=== PATIENT | female | born 1975 | race Caucasian/White ===

== ENCOUNTER → 2022-10-27 13:17 | Outpatient (BNVA) | payer MEDICAID, SELFPAY | PROVIDERS: PCP Family Medicine; Visit Provider Physician Assistant Surgical | DX: Z71.3 Dietary counseling and surveillance (principal) | CPT/HCPCS: 99211 ==

== ENCOUNTER → 2022-10-29 14:17 | Outpatient (BNVA) | payer MEDICAID, SELFPAY | PROVIDERS: PCP Family Medicine; Visit Provider Physician Assistant Surgical | DX: E66.01 Morbid (severe) obesity due to excess calories (principal); Z68.41 Body mass index [BMI] 40.0-44.9, adult | CPT/HCPCS: 99202 ==

== ENCOUNTER 2022-11-03 10:20 | Outpatient (REF) | payer MEDICAID, SELFPAY ==
--- NOTE | ~2022-11-03 | XR_ITS ---
EXAMINATION: XR CHEST CLINICAL INFORMATION: Obesity COMPARISON: None TECHNIQUE: 2 views of the chest were obtained. FINDINGS: The cardiomediastinal silhouette is within normal limits. The lungs are well expanded. There is no focal consolidation, edema, or effusion. No pneumothorax. No acute osseous abnormality. XR/XR chest 2V IMPRESSION: No acute cardiopulmonary process.
--- NOTE | 2022-11-03 10:28 | ECG_ITS ---
Test Reason : e66.01 Blood Pressure : / mmHG Vent. Rate : 063 BPM Atrial Rate : 063 BPM P-R Int : 114 ms QRS Dur : 100 ms QT Int : 408 ms P-R-T Axes : 065 -09 046 degrees QTc Int : 417 ms Normal sinus rhythm Normal ECG No previous ECGs available Referred By: Naga Mak Electronically Signed By:MARIA GUADALUPE PARKS MD
[2022-11-03 10:40] LABS: MANUAL DIFF FLAG NO
[2022-11-03 12:04] LABS: Basophils Percent Auto 0.6 % (0-2); Eosinophils Absolute Auto 0.5 X10*3/uL (0.0-0.4); Eosinophils Percent Auto 6.9 % (0-4); Hematocrit 41.7 % (37.0-47.0); Hemoglobin 13.8 g/dl (12.0-16.0); Imm Gran Abs Auto 0.02 X10*3/uL (0.00-0.03); Imm Gran Pct Auto 0.3 % (0.0-0.4); Lymphocytes Absolute Auto 1.9 X10*3/uL (1.2-4.9); Lymphocytes Percent Auto 28.5 % (20-40); Mean Corpuscular HGB Conc 33.1 g/dl (31.0-35.0); Mean Corpuscular Hemoglobin 30.5 pg (27.0-33.0); Mean Corpuscular Volume 92.1 fL (80.0-98.0); Mean Platelet Volume 11.2 fL (9.4-12.3); Monocytes Absolute Auto 0.4 X10*3/uL (0.1-1.2); Monocytes Percent Auto 6.4 % (2-11); Neutrophils Absolute Auto 3.9 x10*3/uL (2.0-8.3); Neutrophils Percent Auto 57.3 % (45-73); Platelet Count 251 X10*3/uL (160-400); Red Blood Count 4.53 X10*6/uL (4.20-5.50); Red Cell Distribution Width 12.2 % (11.0-16.0); White Blood Count 6.7 X10*3/uL (4.8-10.8)
[2022-11-03 12:40] LABS: Estimated Average Glucose 105 mg/dL; Hemoglobin A1c % 5.3 %
[2022-11-03 13:21] LABS: Alanine Aminotransferase 15 U/L (0-31); Albumin Level 4.4 g/dL (3.5-5.0); Alkaline Phosphatase 66 U/L (39-117); Anion Gap 16 (12-20); Aspartate Amino Transferase 16 U/L (5-31); Bilirubin Total 0.6 mg/dL (0.0-1.0); Blood Urea Nitrogen 17 mg/dL (9-16); Calcium 9.3 mg/dL (8.4-10.2); Carbon Dioxide 26 mmol/L (22-29); Chloride 105 mmol/L (96-108); Cholesterol 193 mg/dL; Estimated Glomerular Filt Rate > 60; Glucose Random 92 mg/dL (60-115); HDL Cholesterol 74 mg/dL; Iron 65 mcg/dL (30-160); LDL Cholesterol Calculated 108 mg/dl; Percent Iron Saturation 20 % (15-50); Potassium 4.2 mmol/L (3.3-5.1); Sodium 143 mmol/L (135-145); Total Iron Binding Capacity 329 mcg/dL (228-428); Total Protein 6.7 g/dL (6.5-8.0); Triglycerides 58 mg/dL; Unsaturated Iron Binding 264 ug/dL
[2022-11-03 13:35] LABS: Ferritin 51 ng/mL (10-250); Insulin 10 uU/mL (2-29); TSH reflex Free T4 1.38 uIU/mL (0.32-4.0); Vitamin B12 280 pg/mL (200-900); Vitamin D 25-OH Total 19.6 ng/mL (>30)
[2022-11-04 12:39] LABS: Calcium (PTHI) 9.6 mg/dL (8.6-10.2); PTHI 31 pg/mL (16-77)
[2022-11-05 11:25] LABS: H Pylori Breath Test Negative (Negative)
[2022-11-06 00:34] LABS: Zinc 87 mcg/dL (60-130)
[2022-11-07 13:09] LABS: Vitamin A 69 mcg/dL (38-98)
[2022-11-08 02:10] LABS: Vitamin B1 8 nmol/L (8-30)
== END 2022-11-03 10:21 | disposition home or self-care (01) ==
LOC: HO.LAB 10:20
PROVIDERS: PCP Family Medicine; Visit Provider Physician Assistant Surgical
DX: E66.01 Morbid (severe) obesity due to excess calories (principal)
CPT/HCPCS: 36415; 71046; 80053; 80061; 82306; 82607; 82728; 82746; 83013; 83036; 83525; 83540; 83970; 84425; 84443; 84590; 84630; 85025; 86140; 93005; 99211

== ENCOUNTER → 2022-12-01 11:07 | Outpatient (BNVA) | payer MEDICAID, SELFPAY | PROVIDERS: PCP Family Medicine; Visit Provider Dietitian, Registered | DX: E66.9 Obesity, unspecified (principal); Z68.37 Body mass index [BMI] 37.0-37.9, adult | CPT/HCPCS: 97803 ==

== ENCOUNTER → 2022-12-02 11:33 | Outpatient (BNVA) | payer MEDICAID, SELFPAY | PROVIDERS: PCP Family Medicine; Visit Provider Physician Assistant Surgical | DX: E66.9 Obesity, unspecified (principal); Z68.37 Body mass index [BMI] 37.0-37.9, adult | CPT/HCPCS: 99212 ==

== ENCOUNTER → 2022-12-08 12:30 | Outpatient (BNVA) | payer OTHER, MEDICAID, SELFPAY | PROVIDERS: PCP Family Medicine; Visit Provider Counselor Mental Health | DX: F43.20 Adjustment disorder, unspecified (principal); E66.9 Obesity, unspecified | CPT/HCPCS: 90791 ==

== ENCOUNTER 2022-12-22 08:26 | Outpatient (REF) | payer MEDICAID, SELFPAY ==
--- NOTE | ~2022-12-22 | US_ITS ---
EXAMINATION: US COMPLETE ABDOMEN WITH LIVER ELASTOGRAPHY CLINICAL INFORMATION: Morbid/severe obesity due to excess calories. COMPARISON: None available. TECHNIQUE: Real-time imaging of the abdominal viscera. Noninvasive ultrasound liver fibrosis assessment is performed using Harris ElastPQ point quantification shear wave elastography (2D-SWE) with a C5-2 MHz transducer. Multiple elastography samples are obtained. FINDINGS: PANCREAS: Normal. The visualized pancreatic head and body are normal in appearance. The remainder of the pancreas is obscured from visualization by the overlying bowel gas. ABDOMINAL AORTA: The proximal, middle, and distal aortic segments are normal in caliber. INFERIOR VENA CAVA: Visualized portions are normal. LIVER: . The liver demonstrates normal size, contour and mild increased echogenicity. No focal lesion or intrahepatic biliary duct dilatation. The right lobe measures 18.6 cm in length. The left lobe measures 9.9 cm in length. Portal flow is hepatopedal. Shear wave liver elastography median stiffness is 1.27 m/s (reference: normal median stiffness is 1.3 m/s or less). IQR/median stiffness to assess sampling precision is 0.06 (reference: good quality data set is IQR/median stiffness of 0.15 or less). GALLBLADDER: Normal. The gallbladder is physiologically distended without evidence of stones, sludge, polyps, wall thickening or pericholecystic fluid. COMMON BILE DUCT: Normal in caliber measuring 0.6 cm in diameter. RIGHT KIDNEY: Normal. No hydronephrosis. No renal calculi or focal parenchymal lesions. The kidney measures 9.8 cm in maximum dimension. LEFT KIDNEY: Normal. No hydronephrosis. No renal calculi or focal parenchymal lesions. The kidney measures 10.0 cm in maximum dimension. SPLEEN: Normal. The spleen measures 11.7 cm in maximum dimension. FREE FLUID: None. US/US abdomen comp w elastography IMPRESSION: 1. Mild hepatic steatosis without focal lesion. The rest of the abdominal ultrasound is unremarkable. 2. Liver elastography: Median liver stiffness measures 1.27 m/s corresponding to high probability normal. REFERENCE: Society of Radiologists in Ultrasound Liver Stiffness Thresholds (2019): LIVER STIFFNESS THRESHOLDS: *Liver Stiffness equal or less than 1.3 m/s: High probability of being normal. *Liver Stiffness less than 1.7 m/s: In the absence of other known clinical signs, rules out compensated advanced chronic liver disease. *Liver Stiffness 1.7-2.1 m/s: Suggestive of compensated advanced chronic liver disease but need further test for confirmation. *Liver Stiffness over 2.1 m/s: Rules in compensated advanced chronic liver disease. *Liver Stiffness over 2.4 m/s: Suggestive of clinically significant portal hypertension. QUALITY OF DATA SET: *IQR/Median value equal or less than 0.15 implies a quality data set. *IQR/Median value over 0.15 implies a poor quality data set. SIGNIFICANT CHANGE FROM PRIOR EXAM: Significant change if liver stiffness measurement is 10% or greater from prior exam. OTHER CONSIDERATIONS: The stage of liver fibrosis may be overestimated in the setting of acute hepatitis, liver inflammation, elevated liver function tests, hepatic vascular congestion, obstructive cholestasis, non-fasting state, and infiltrative diseases such as amyloidosis and lymphoma. In some patients with NAFLD, the liver stiffness thresholds for compensated advanced chronic liver disease may be lower. In causes other than viral hepatitis and NAFLD, liver stiffness thresholds are not well established.
--- NOTE | ~2022-12-22 | FL_ITS ---
EXAMINATION: FL UPPER GI SERIES CLINICAL INFORMATION: Bariatric service evaluation. E66.01. Asymptomatic. COMPARISON: None TECHNIQUE: Upper GI series is performed using fluoroscopic evaluation in addition to multiple fluoroscopic spot views. The patient is imaged both upright and prone and using both thick and thin barium sulfate along with effervescent granules. Fluoroscopy time: 1.7 minutes DAP: 22.44 Gycm2 Fluoroscopic spot images: 19 FINDINGS: There is normal esophageal motility. There is no obstruction, stricture, or ulceration. There is physiologic herniation at the esophagogastric junction during the prone Valsalva maneuver without overt hernia. There is mild gastroesophageal reflux during the water siphon test to the mid thoracic esophagus. The stomach shows no thickened folds or ulcer crater or outlet obstruction. The duodenal bulb is pliable and without ulcer crater or scarring. The post bulbar duodenum the jejunal mucosal pattern are unremarkable. FL/FL upper GI w air IMPRESSION: -Physiologic herniation of esophagogastric junction during prone Valsalva maneuver. No overt hernia. Mild gastroesophageal reflux during water siphon test to mid thoracic esophagus. -No ulceration, stricture, or scarring.
== END 2022-12-22 08:27 | disposition home or self-care (01) ==
LOC: HO.US 08:26
PROVIDERS: PCP Family Medicine; Visit Provider Physician Assistant Surgical
DX: Z01.818 Encounter for other preprocedural examination (principal); E66.01 Morbid (severe) obesity due to excess calories; K21.9 Gastro-esophageal reflux disease without esophagitis
CPT/HCPCS: 74246; 76705; 76981

== ENCOUNTER → 2022-12-24 08:11 | Outpatient (BNVA) | payer MEDICAID, SELFPAY | PROVIDERS: PCP Family Medicine; Visit Provider Surgery ==

== ENCOUNTER → 2023-01-19 08:24 | Outpatient (BNVA) | payer MEDICAID, SELFPAY | PROVIDERS: PCP Family Medicine; Visit Provider Surgery ==

== ENCOUNTER → 2023-02-14 08:26 | Outpatient (BNVA) | payer MEDICAID, SELFPAY | PROVIDERS: PCP Family Medicine; Visit Provider Surgery ==

== ENCOUNTER → 2023-02-23 08:33 | Outpatient (BNVA) | payer MEDICAID, SELFPAY | PROVIDERS: PCP Family Medicine; Visit Provider Surgery ==

== ENCOUNTER 2023-02-24 11:11 | Outpatient (REF) | payer MEDICAID, SELFPAY ==
[2023-02-24 11:26] LABS: MANUAL DIFF FLAG NO
[2023-02-24 12:46] LABS: Basophils Absolute Auto 0.1 X10*3/uL (0.0-0.2); Basophils Percent Auto 0.6 % (0-2); Eosinophils Absolute Auto 0.5 X10*3/uL (0.0-0.4); Eosinophils Percent Auto 6.3 % (0-4); Hematocrit 42.3 % (37.0-47.0); Imm Gran Abs Auto 0.02 X10*3/uL (0.00-0.03); Imm Gran Pct Auto 0.3 % (0.0-0.4); Lymphocytes Absolute Auto 2.9 X10*3/uL (1.2-4.9); Lymphocytes Percent Auto 36.6 % (20-40); Mean Corpuscular HGB Conc 33.1 g/dl (31.0-35.0); Mean Corpuscular Hemoglobin 30.4 pg (27.0-33.0); Mean Corpuscular Volume 91.8 fL (80.0-98.0); Mean Platelet Volume 10.8 fL (9.4-12.3); Monocytes Absolute Auto 0.5 X10*3/uL (0.1-1.2); Monocytes Percent Auto 5.8 % (2-11); Neutrophils Percent Auto 50.4 % (45-73); Platelet Count 276 X10*3/uL (160-400); Red Blood Count 4.61 X10*6/uL (4.20-5.50); Red Cell Distribution Width 12.4 % (11.0-16.0)
[2023-02-24 12:53] LABS: Estimated Average Glucose 103 mg/dL; Hemoglobin A1c % 5.2 %; INTERNATIONAL NORM RATIO 0.9 (0.9-1.1); Prothrombin Time 10.1 SEC (10.0-13.1)
[2023-02-24 12:56] LABS: Partial Thromboplastin Time 34.4 SEC (26.0-36.4)
[2023-02-24 13:15] LABS: Alanine Aminotransferase 17 U/L (0-31); Albumin Level 4.2 g/dL (3.5-5.0); Alkaline Phosphatase 71 U/L (39-117); Anion Gap 12 (12-20); Aspartate Amino Transferase 15 U/L (5-31); Bilirubin Total 0.4 mg/dL (0.0-1.0); Blood Urea Nitrogen 17 mg/dL (9-16); C Reactive Protein < 0.10 mg/dL (< or = 0.50); Calcium 9.8 mg/dL (8.4-10.2); Carbon Dioxide 31 mmol/L (22-29); Chloride 102 mmol/L (96-108); Cholesterol 205 mg/dL; Estimated Glomerular Filt Rate > 60; Glucose Random 84 mg/dL (60-115); HDL Cholesterol 72 mg/dL; LDL Cholesterol Calculated 113 mg/dl; Potassium 4.1 mmol/L (3.3-5.1); Sodium 141 mmol/L (135-145); Total Protein 6.7 g/dL (6.5-8.0); Triglycerides 100 mg/dL
[2023-02-24 13:35] LABS: Insulin 11 uU/mL (2-29); TSH reflex Free T4 1.69 uIU/mL (0.32-4.0)
== END 2023-02-24 11:12 | disposition home or self-care (01) ==
LOC: HO.LAB 11:11
PROVIDERS: PCP Family Medicine; Visit Provider Surgery
DX: E66.9 Obesity, unspecified (principal); Z68.36 Body mass index [BMI] 36.0-36.9, adult
CPT/HCPCS: 36415; 80053; 80061; 83036; 83525; 84443; 85025; 85610; 85730; 86140

== ENCOUNTER 2023-03-01 10:02 | Inpatient (IN) | payer MEDICAID, SELFPAY ==
[2023-02-25 09:20] VITALS: BMI 36.0
--- NOTE | 2023-02-26 13:07 | MHC.SHP ---
Pre-Procedural Eval Section A Date of Service: 02/26/23 The patient is an INPATIENT: Yes The History & Physical has been completed within 30 days and I have reviewed it.: Yes Section B Chief Complaint: Obesity, unspecified Relevant Family History (Specify if Yes): No Relevant Social History: None Present Medications: None Medical History: No relevant PMH History of Previous Operations: No relevant previous surgery Allergies: Allergies Allergy/AdvReac Type Severity Reaction Status Date / Time bee venom protein (honey bee) Allergy Severe Anaphylaxis Verified 02/25/23 09:12 shellfish derived Allergy Severe Anaphylaxis Verified 02/25/23 09:12 Review of Systems Sugical H&P ROS: Negative: Constitution, Cardiovascular, Respiratory, Neurological, Psychiatric, Hem-Onc, Allergic/Immunologic, Gastrointestinal, Genitourinary, Musculoskeletal, Integumentary, Endocrine and Eyes/Ears/Nose/Throat Exam Surgical H&P Exam: Normal: HEENT, Normal: Heart, Normal: Lungs, Normal: Extremities, Normal: Abdomen, Normal: Skin and Normal: Neurological Plan Diagnosis/Plan: Unchanged I have reviewed the history and physical and performed a pertinent physical examination on my patient. No changes have occurred unless specified. Time Spent With Patient Time: Total time managing care of this patient today ____ minutes.
--- NOTE | 2023-02-28 09:54 | P.CONAN_ITS ---
Documented by User: Blank Martinez NP 02/28/23 09:55 HPI - Anesthesia Eval Consult details Narrative: 47yo F for Gastrectomy Sleeve, EGD,Poss Diaphragmatic hernia, Poss ventral Hernia,Poss Open PMFSH Active Problems Active Problems: All Active Problems (Updated 02/25/23 @ 09:20 by Leeann Wilson RN) Morbid obesity (Acute) Obesity with body mass index (BMI) of 30.0 to 39.9 (Acute) Adjustment disorder, unspecified (Acute) GERD (gastroesophageal reflux disease) (Acute) Constipation (Acute) Obesity (Acute) BMI 36.0-36.9,adult (Acute) BMI 35.0-35.9,adult (Acute) Past Medical History Medical History Obesity Tendonitis Family History Family History Mother COPD (chronic obstructive pulmonary disease) Father No problems noted. Son No problems noted. Daughter No problems noted. Surgical History Surgical History History of inguinal hernia repair, bilateral History of lumpectomy of both breasts History of surgery on left wrist History of tubal ligation Social History Social History Household Members: Spouse and Children Housing: House Are you a primary physician primary care sports medicine to a significant other at home: No Do you presently have visiting nurse or other home services: No Alcohol intake: current Alcohol intake frequency: does not drink Patient Tobacco Use Status: Former Tobacco user Quit Date: 2020 Tobacco use type: Cigarette Use of substances other than those prescribed or required for medical reasons: No Have you been hit, kicked, punched, or otherwise hurt by someone within the past year? If so, by whom?: No Are you DNR?: No Advance Directives: No Advance Directives Information Provided: Yes (Mailed w/ preop instructions) Advance Directives on File: No Recently lost weight without trying: No How much weight loss: 14-23 pounds Eating poorly because of decreased appetite: No Nutrition screen score: 2 Nutrition Risks: No Nutritional Risk Patient : No FDLMP: TL/ Early menopause : No Current occupational status: employed Current occupation: [employer] Meds Allergies Allergy/AdvReac Type Severity Reaction Status Date / Time bee venom protein (honey bee) Allergy Severe Anaphylaxis Verified 02/25/23 09:12 shellfish derived Allergy Severe Anaphylaxis Verified 02/25/23 09:12 Exam Exam Date and Time: February 28, 2023 0954 Height,Weight and Vital Signs: Height 5 ft 2 in Weight 89.358 kg Pertinent Lab Results Pertinent Lab Results: Laboratory Tests 02/24/23 11:22 Blood Type O Negative Antibody Screen NEGATIVE Laboratory Tests 02/24/23 02/24/23 11:25 11:25 WBC 8.0 Hgb 14.0 Hct 42.3 Plt Count 276 Sodium 141 Potassium 4.1 Chloride 102 Carbon Dioxide 31 H BUN 17 H Creatinine 0.89 Narrative Narrative: EKG 10/2022 Vent. Rate : 063 BPM ? ? Atrial Rate : 063 BPM ?? P-R Int : 114 ms? QRS Dur : 100 ms ? ? QT Int : 408 ms ? ? ? P-R-T Axes : 065 -09 046 degrees ?? QTc Int : 417 ms ? Normal sinus rhythm Normal ECG No previous ECGs available Assessment and Plan Assessment Anesthesia Assessment: Chart Reviewed Documented by User: Constance Thompson MD 03/01/23 13:23 HPI - Anesthesia Eval Consult details Narrative: 47yo F for EGD, Laparoscopic Sleeve Gastrectomy, Poss Diaphragmatic hernia repair, Poss ventral Hernia repair, Poss Open PMFSH Active Problems Active Problems: All Active Problems (Updated 03/01/23 @ 11:57 by Constance Thompson MD) Morbid obesity (Acute) Obesity with body mass index (BMI) of 30.0 to 39.9 (Acute) Adjustment disorder, unspecified (Acute) GERD (gastroesophageal reflux disease) (Acute) Constipation (Acute) Obesity (Acute) BMI 36.0-36.9,adult (Acute) BMI 35.0-35.9,adult (Acute) Past Medical History Medical History Obesity Tendonitis Family History Family History Mother COPD (chronic obstructive pulmonary disease) Father No problems noted. Son No problems noted. Daughter No problems noted. Family history of problems with anesthesia: No Surgical History Surgical History History of inguinal hernia repair, bilateral History of lumpectomy of both breasts History of surgery on left wrist History of tubal ligation History of Problems with Anesthesia: No Social History Social History Household Members: Spouse and Children Housing: House Are you a primary physician primary care sports medicine to a significant other at home: No Do you presently have visiting nurse or other home services: No Alcohol intake: current Alcohol intake frequency: does not drink Patient Tobacco Use Status: Former Tobacco user Quit Date: 2020 Tobacco use type: Cigarette Use of substances other than those prescribed or required for medical reasons: No Have you been hit, kicked, punched, or otherwise hurt by someone within the past year? If so, by whom?: No Are you DNR?: No Advance Directives: No Advance Directives Information Provided: Yes (Mailed w/ preop instructions) Advance Directives on File: No Recently lost weight without trying: No How much weight loss: 14-23 pounds Eating poorly because of decreased appetite: No Nutrition screen score: 2 Nutrition Risks: No Nutritional Risk Patient : No FDLMP: TL/ Early menopause : No Current occupational status: employed Current occupation: [employer] Meds Allergies Allergy/AdvReac Type Severity Reaction Status Date / Time bee venom protein (honey bee) Allergy Severe Anaphylaxis Verified 02/25/23 09:12 shellfish derived Allergy Severe Anaphylaxis Verified 02/25/23 09:12 Exam Height,Weight and Vital Signs: Height 5 ft 2 in Weight 89.358 kg Vital Signs Temp Pulse Resp BP Pulse Ox O2 Del Method 03/01/23 10:16 98.1 F 71 16 129/85 97 Room Air Pertinent Lab Results Pertinent Lab Results: Laboratory Tests 02/24/23 11:22 Blood Type O Negative Antibody Screen NEGATIVE Laboratory Tests 02/24/23 02/24/23 11:25 11:25 WBC 8.0 Hgb 14.0 Hct 42.3 Plt Count 276 Sodium 141 Potassium 4.1 Chloride 102 Carbon Dioxide 31 H BUN 17 H Creatinine 0.89 Laboratory Results - last 48 hr 02/28/23 14:40 COVID-19 (JUANA) Negative COVID-19 Clin Com See Note Airway Mallampati Class: II TM Dist: >3cm Neck ROM: Full Partial: Lower Loose/Missing/Broken Teeth: Yes (Top front teeth capped. 2 Bottom front teeth missing- partial dentures. Denies broken or loose teeth) Heart: RRR Lungs: CTAB Assessment and Plan Assessment Anesthesia Assessment: Anesthesia Plan Discussed Final Anesthetic Review Family History of Problems with Anesthesia: No History of Problems with Anesthesia: No NPO: Yes ASA Class: III Final Preanesthetic Review: No Changes in Pt Med Stat, Meds/Allgs Chart Reviewed, Consent Obtained/Reviewed and Anes Risks/Benef Reviewed Patient Risk: Intermediate Procedure Risk: Intermediate Assessment/Block/Sedation in SS: Assess/Block/Sedation-SS Anesthetic Plan Anesthetic Plan: GA Disposition: Standard PACU and Inp. Admit - Standard Bed
[2023-02-28 15:59] LABS: COVID-19 Test Negative (Negative); IDNOW Serial# 9DB6401D
[2023-03-01] VITALS (9 sets, daily range): BP systolic 120–144; BP diastolic 62–85; PULSE 67–83; RESP 12–20; TEMP 35.9–36.7; O2SAT 96–100
--- NOTE | 2023-03-01 10:15 | PHA.MEDREC ---
Pharmacy Consult ? Medication Reconciliation Pharmacy has completed the medication reconciliation. Reviewed med rec done by nursing
[2023-03-01] MEDS: Lactated Ringers 1,000 ML 999 ML IV ×2 (10:18→15:32)
[2023-03-01] MEDS: Lactated Ringers 1,000 ML 100 ML IVCONT (10:18)
[2023-03-01] MEDS: Aprepitant 32 MG/4.4 ML VIAL IVPUSH (10:30)
--- NOTE | 2023-03-01 11:55 | P.BOP_ITS ---
Brief Operative Note Date of Service: 03/01/23 Pre-op diagnosis: Severe obesity with comorbidities (see below) Post-op diagnosis: same Procedure: INITIAL PATIENT BMI ON PRESENTATION AT OUR OFFICE: 40.3 kg/m2 LAST BMI BEFORE SURGERY: 35.6 kg/m2 COMORBIDITIES: GERD, liver steatosis ?The patient presented to the Weight Management Program with significant obesity that was negatively impacting the patient's comorbidities as listed above.? The program is a phased program with a special focus on preoperative medical weight management to promote substantial weight loss and prepare the patients for the second phase of the program: bariatric surgery. The patient participated in an intensive weekly lifestyle ?intervention and exercise program during which the patient ?has lost between the initial office visit and the last preoperative visit 26 lbs, or 11.86% of initial actual body weight. It was deemed appropriate for the patient to now have bariatric surgery. In light of the current Covid-19 pandemic and the well documented strong association of obesity and increased risk of worse outcomes if infected with Covid-19 (REFERENCES: https://pubmed.ncbi.nlm.nih.gov/72277610/ ,? https://pubmed.ncbi.nlm.nih .gov/76305893/ ), any delay in undergoing bariatric surgery may lead to the patient's worsening health condition and increased?risk of more severe Covid-19 disease if infected. In addition a recent?study from [facility] published in [facility] on 09/21/2021 ([email or web address]) found that, among patients with obesity, substantial weight loss achieved with surgery was associated with improved outcomes of COVID-19 infection. The findings suggest that obesity can be a modifiable risk factor for the severity of COVID-19 infection. In addition, the patient met the BMI-criteria for bariatric surgery based on the BMI on initial presentation. The patient should not be penalized for achieving such weight loss because ?it is not sustainable long-term without surgical intervention and it was achieved in preparation for bariatric surgery ?under my direction and based on my published research ([email or web address]).[email or web address] and? https://www.soard.org/article/[email or web address](76)37697-X/pdf ) ?that a 10% preoperative weight loss improves long-term weight loss after surgery and reduces perioperative complications.? Insurance carriers such as [facility] have endorsed my recommendations ?and have included in their policies criteria to include a 10% preoperative weight loss requirement. PROCEDURE: Esophago-gastroscopy, laparoscopic lysis of adhesions, laparoscopic sleeve gastrectomy and laparoscopic gastropexy INDICATIONS: This is a 47 year-old female who was electively scheduled for laparoscopic, possibly open sleeve gastrectomy. The risks and complications of the procedure were discussed with the patient in advance, particularly the possibility of ; pulmonary embolism; staple line leak; bleeding; GERD; cardiac, pulmonary, or renal complications; as well as long-term problems such as insufficient weight loss, vitamin deficiency, strictures, or ulcers. The patient understood all the risks, and was in agreement to proceed with surgery. DESCRIPTION OF PROCEDURE: After informed consent was obtained from the patient, the patient was given preoperative antibiotics, and was transferred to the operating room. After successful induction of general anesthesia, pneumatic compression devices were placed on both lower extremities. An upper endoscopy was performed next. The oropharynx and esophagus appeared to be within normal limits. There was no diaphragmatic hernia present consistent with the findings of the preoperative upper GI. The stomach was entered. Then after all fluid and air were suctioned and the stomach was fully decompressed, the scope was withdrawn and secured in the mid esophagus. The patient was then prepped and draped in the usual sterile manner, and abdominal access was established at the right upper quadrant with the William technique. A 12 mm blunt port was inserted, and the abdomen was insufflated with CO2 to a pressure of 15 mmHg. Under direct visualization, additional ports were placed, specifically two 5 mm Versi-step ports to the left upper quadrant, and a 5 mm Versi-Step port to the right upper quadrant. 1% lidocaine plain was used to infiltrate all port sites as well as all fascia defects. Following that, the patient was placed in a steep reverse Trendelenburg position. An additional 5 mm port was placed to the right flank for the Mediflex retractor that was used to retract the left lobe of the liver. The gastro-esophageal fat pad was opened with the ultrasonic device (Thunderbeat, Olympus) and the anterior esophagus and hiatus were exposed. The angle of His was opened with the ultrasonic device the fundus of the stomach from any diaphragmatic and splenic attachments. I then opened the gastrocolic ligament between the transverse colon and the greater curvature of the stomach with the ultrasonic device to enter the lesser sac and facilitate the ligation of the short gastric vessels. I started at a mid-point along the greater curvature and using the Thunderbeat, all short gastric vessels were divided all the way to the angle of His until the left devora was completely dissected at its entirety. I then divided the gastro-colic ligament distally to a distance of about 3-4 cm proximal to the pylorus. There were extensive congenital adhesions between the pancreas and posterior gastric wall. Those were lysed completely with the ultrasonic device. Adhesiolysis took approximately 45 min to complete. The stomach was then divided transversely with one Endo JAROD-45 purple and four JAROD-60 articulating purple loads using the SIGNIA stapler and loads. Every effort was made that the gastric sleeve had a tubular shape and an even caliber throughout. Once the sleeve resection was completed, the staple line of the gastric sleeve was reinforced with Hemoclips. The resected stomach was retrieved without difficulty from the William port. A gastropexy was then performed in order to prevent postoperative GERD and partial gastric volvulus. Several interrupted 2.0 Surgidac sutures were placed between the sleeve's staple line and the previously divided greater omentum and gastro-colic ligament using the Endo-Stitch device. ?An upper endoscopy was performed. There was no narrowing at the GE junction. The scope was easily advanced all the way to the pylorus which was clearly vi sualized. There was no narrowing anywhere and the sleeve's caliber was even throughout. The sleeve's staple line was inspected and there was no evidence of ischemia, bleeding or dehiscence. At that point the gastroscope was withdrawn from the patient?s mouth while we were decompressing the bowel and the stomach from any remaining air. I looked into the lesser sac to see how the sleeve was situating and it was situating well. There was no bleeding from the staple line, spleen, or short gastric vessels. The Mediflex retractor was removed, and the undersurface of the liver was inspected and there was no bleeding. The patient was placed in supine position. I closed the fascial defect of the 12 mm port site with a figure of eight #1 Polysorb suture. Then 30cc Ropivacaine plain with 10 mg of Dexamethasone were used to infiltrate the fascial closure as well as all skin incisions. At this point, the abdomen was deflated, all ports were removed under direct vision, and no bleeding was noted from any of the port sites. The skin incisions were irrigated with saline and were closed with 4-0 absorbable monofilament sutures. Steri-Strips and OpSites were used to cover all incisions. The patient was extubated and was transferred in stable condition to the recovery room for further care. I was present and performed all sahni parts of the procedure. Mr. Mak was the veterinary technician assistant. There were no residents to assist with this case. Nathaniel Pineda MD, PhD, FACS Surgeon: Wagner Pineda MD Anesthesia: GETA and other (TAP block) Was an Client Liaison used for this Procedure?: No Client Liaison: Naga Mak Estimated blood loss (mL): 10 IV fluids (mL): 2,000 Urine output (mL): 0 (No grewal to record output) Pathology: other (Stomach) Condition: stable Disposition: PACU
--- NOTE | 2023-03-01 11:58 | PM.PNGS ---
Subjective Subjective Date of Service: 03/02/23 Interval history: Feels well. Mild incisional pain. She is tolerating phase 1 bariatric diet Physical Exam Vital Signs: Vital Signs: Last Vital Signs Temp 98.1 F 03/01/23 10:16 Pulse 71 03/01/23 10:16 Resp 16 03/01/23 10:16 BP 129/85 03/01/23 10:16 Pulse Ox 97 03/01/23 10:16 O2 Del Method Room Air 03/01/23 10:16 BMI result Body Mass Index 36.0 GI: Inspection: Yes normal to inspection, Yes incision (clean, dry and intact) and Yes obesity Extrem: Right lower extremity: normal to inspection (no calf tenderness) Left lower extremity: normal to inspection (no calf tenderness) Objective Data Active Medications Lactated Ringer's (Lr) 1,000 mls @ 100 mls/hr IVCONT .Q10H [facility] Last Admin: 03/01/23 10:18 Dose: 100 mls/hr Documented By: ROXIE Lactated Ringer's (Lr) 1,000 mls @ 999 mls/hr IV .Q1H1M JOSE Stop: 03/01/23 12:15 Last Admin: 03/01/23 10:18 Dose: 999 mls/hr Documented By: ROXIE Labs 03/01/23 15:03 03/01/23 15:03 Labs: Laboratory Results - last 24 hr 02/28/23 14:40 COVID-19 (JUANA) Negative COVID-19 Clin Com See Note Procedures Date of Service Date of Service: 03/02/23 Progress Note: A&P Assessment and plan (1) Obesity: Status: Acute Assessment and Plan: s/p laparoscopic sleeve gastrectomy, lysis of adhesions and gastropexy Doing well Will check am labs and if OK the patient will be discharged home (2) BMI 35.0-35.9,adult: Status: Acute (3) GERD (gastroesophageal reflux disease): Status: Acute (4) Steatosis, liver: Status: Acute Time Spent With Patient Time: Total time managing care of this patient today ____ minutes. Quality Stroke Does the patient have a stroke diagnosis?: No VTE Prior VTE?: No VTE Risk Level:: Medical - moderate - high VTE Device Contraindication: N/A - Device Ordered VTE Drug Contraindication: Treatment Not Indicated
--- NOTE | 2023-03-01 14:54 | PM.DS ---
DS: Providers Provider Date of Service: 03/02/23 Date of admission: 03/01/23 10:02 Primary care physician: Abrahan Samuel MD DS: Diagnosis Discharge Diagnosis (1) Obesity: Status: Acute (2) BMI 35.0-35.9,adult: Status: Acute (3) GERD (gastroesophageal reflux disease): Status: Acute (4) Steatosis, liver: Status: Acute DS: Summary Hospital Course Hospital Course: ADMITTING DIAGNOSIS: obesity ? DISCHARGE DIAGNOSIS: same, s/p laparoscopic sleeve gastrectomy ? PAST SURGICAL HISTORY: tubal ligation, inguinl hernia repair, L wrist surgery ? PROCEDURE: upper endoscopy, laparoscopic sleeve gastrectomy ? DISCHARGE SUMMARY: ? History of Present Illness: ? The patient is a?47 year-old woman with a BMI of?40.1 kg/m2 and associated co-morbidities as described above. The patient had extensive work-up,lost?22.7 lbs preoperatively and was electively scheduled for laparoscopic, possible open sleeve gastrectomy and gastropexy. Risks and complications of the surgery were discussed with the patient in advance, particularly the possibility of , pulmonary embolism, anastomotic leak, bleeding, bowel injury, GERD, cardiac, renal or pulmonary complications. The patient understood all the risks and was in agreement with the surgical plan. ? Hospital Course: ? The patient underwent an uneventful laparoscopic sleeve gastrectomy with gastropexy on the day of admission. Postoperatively, the patient was transferred to the surgical floor. The patient received IV Acetaminophen and IV dilaudid for pain control. Patient was started on bariatric phase 1 diet POD #0. On postoperative day one, the patient was feeling well without nausea, vomiting, fevers, or tachycardia. The patient had some mild incisional pain and the abdomen was soft. ? On the morning of postoperative day one, the patient was continued on 1 ounce of water or ice every half hour. During the day, the patient did fairly well, having some incisional pain, but able to ambulate adequately and to tolerate liquids well. ? Since the patient is doing well, we decided that the patient was ready to be discharged. The patient was given instructions to follow-up with me next week and to call my office for any fever over 101, persistent abdominal pain, nausea, vomiting, GERD, symptoms of DVT such as calf tenderness, or leg swelling, or pulmonary embolism such as chest pain or shortness of breath. The patient was also instructed to drink 40-60 ounces of liquids per day using the 1-ounce cups. The patient had been given prescriptions for Tylenol for pain, Zofran prn for nausea, and pantoprazole and carafate previously. The patient was encouraged to ambulate and use the incentive spirometer. The patient was allowed to shower, but no baths, and encouraged to stay active at home. All of these instructions were given to the patient personally. All questions were answered and the patient understood all instructions, the instructions were also given to the patient in print. Time Spent with Patient Time attestation: Total time managing care of this patient today ____ minutes. Discharge coordination time: Less than 30 minutes Quality: Safe Use of Opioids Does Pt have an Active Cancer Diagnosis on the Problem List?: No Quality: Stroke Does the patient have a stroke diagnosis?: No Physical Exam Vital Signs: Vital Signs: Last Vital Signs Temp 97.2 F 03/01/23 14:50 Pulse 83 03/01/23 14:50 Resp 14 03/01/23 14:50 BP 144/76 H 03/01/23 14:50 Pulse Ox 100 03/01/23 14:50 O2 Del Method Simple Mask 03/01/23 14:50 O2 Flow Rate 6 03/01/23 14:50 BMI result Body Mass Index 36.0 DS: Data Data Completed and Pending Pending studies at discharge: Pending at discharge 03/01/23 13:49 Surgical [PTH] Routine Labs on day of discharge: Laboratory Results - last 24 hr 02/28/23 14:40 COVID-19 (JUANA) Negative COVID-19 Clin Com See Note Discharge Plan Discharge Anticipated Discharge Date/Time: 03/02/23 12:45 Patient Disposition: Home, Self-Care Discharge Diagnosis: s/p laparoscopic sleeve gastrectomy Referrals: Abrahan Samuel MD [Primary Care Provider] - 1 Week Discharge Medications: Continued pantoprazole 40 mg tablet,delayed release (DR/EC) 40 mg PO DAILY 90 Days Qty: 90 0RF sucralfate 100 mg/mL suspension 10 ml PO BID Qty: 400 2RF ondansetron 4 mg tablet,disintegrating 4 mg PO Q12H Qty: 20 0RF Discontinued docusate sodium [Colace] 100 mg capsule 100 mg PO DAILY Qty: 30 2RF polyethylene glycol 3350 [Miralax] 17 gram powder in packet 17 g PO DAILY Qty: 14 0RF Rx Instructions: Mix each packet with 8oz of water, Crystal light, or Gatorade zero, or Propel and do 7 packets on 02/27/23 and another 7 packets on 02/28/23 Activity on Discharge: No heavy lifting Stand Alone Forms: Patient Portal Discharge page Care Plan Goals: weight loss Health Concerns: obesity Plan of Treatment: No tub baths, sex or returning to work until discussed at first post op appointment. No exercise, alcohol, tobacco or illegal drug use. Continue to use incentive spirometer hourly while awake. Walk in home for 5- 10 minutes every 2 hours during the first week. Follow all instructions in the bariatric handbook and call with any questions.Discharge Instructions 1. Please call your doctor or come back to the emergency room should any new symptoms arise. 2. You will receive a courtesy call from [facility] [place] 24-48 hours after discharge. 3. Activity: abstain from alcohol, practice limited stair climbing, no bending, no driving, no exercise, no illicit substances, no lifting, no sex, no tub bath, no work. 4. Diet: continue as discussed with Dr. Pineda. 5. Dressing Change/Wound Care: Your incision is covered by clear bandages and guaze underneath. If the area is tender, you may apply an ice pack for short intervals (no more than 20 minutes on, followed by at least 20 minutes off). Do not apply heat. Do not use creams, lotions, or topical antibiotics unless instructed to do so by your surgeon. These can cause infection or allergic reaction. 6. Call your doctor if: - Your temperature exceeds 101.5 F - You experience excessive pain or swelling - You have an unexpected reaction to medication - You have excessive bleeding - You experience continued vomiting/nausea - Your incision begins to separate - Your incision shows signs of infection such as increased redness, swelling, excessive pain, heat, or drainage (light blood or clear fluid is normal) 7. General instructions: No lifting greater than 5 lbs for the next 4 weeks[address] within 24 hours of taking narcotic pain medications. If you do not move your bowels in the next 2 days, please take milk of magnesia over the counter. Please follow the post op diet and do not advance your diet until you are seen in the office in about 2 weeks. Please walk around your home every hour or two to prevent blood clots from forming in your legs. You do not need to wake from sleeping to walk. Please sleep in a bed or couch to prevent kinking at the hips and knees. Please take your incentive spirometer (your lung tobacco grader) home with you and use it for the next few days to prevent pneumonias. You may shower, no hot tubs, baths or swimming pools. Please call the office with any questions or concerns such as increasing abdominal pain, fever, chills, shortness of breath, chest pain, leg pain or swelling, or redness or drainage from your incisions. Please stay on stage 3 diet which includes sugar free clear liquids such as ice pops and jello and broth and crystal light. Avoid all carbonation. Please drink 3 protein shakes with at least 25-30 grams of protein daily or 3 of the Celebrate 4:1 shakes which can be purchased in our office. The Celebrate shakes have all of the bariatric vitamins you need if you consume these shakes. If you are drinking other protein shakes, you will need to purchase the Celebrate multivitamins and calcium that we provide in the office (they will provide all the vitamins you need). Please make sure you are consuming at least 40-60 ounces of water in addition to your 3 protein shakes daily. Do not hesitate to contact the office with any questions at . The patient's medical history has been reviewed and they are considered low risk for post op DVT and therefore DVT prophylaxis is not considered necessary. Travel after surgery was reviewed. The patient has not disclosed any travel plans during the first 30 days after surgery and they have been advised that within the first 30 days after surgery any bus, plane, train or car travel over 2 hours in duration is contraindicated due to the possibility of developing blood clots from immobility. Any travel, needs to include periods of ambulation of 10 minutes in duration every 2 hours.? The patient was instructed to discuss any plans for travel during this period with their bariatric surgeon. Assessment: stable s/p laparoscopic sleeve gastrectomy
[2023-03-01 15:33] LABS: Hematocrit 34.5 % (37.0-47.0); Hemoglobin 11.5 g/dl (12.0-16.0)
[2023-03-01 15:49] LABS: Anion Gap 12 (12-20); Blood Urea Nitrogen 13 mg/dL (9-16); Carbon Dioxide 26 mmol/L (22-29); Chloride 108 mmol/L (96-108); Creatinine Clr Calc Pharmacy 86.8; Estimated Glomerular Filt Rate > 60; Glucose Random 127 mg/dL (60-115); Potassium 3.9 mmol/L (3.3-5.1); Sodium 142 mmol/L (135-145)
[2023-03-01] MEDS: ceFAZolin Sodium/Dextrose,Iso 2 GM/50 ML PIGGYBACK IV (18:06)
[2023-03-01] MEDS: 0.9 % Sodium Chloride Flush 3 ML SYRINGE IVFLUSH (20:28)
[2023-03-01] MEDS: Famotidine/PF 20 MG/2 ML VIAL IVPUSH (20:28)
[2023-03-01] MEDS: Acetaminophen 1,000 MG/100 ML PIGGYBACK 400 MG IV (20:28)
[2023-03-02] MEDS: Lactated Ringers 1,000 ML 100 ML IVCONT (01:51)
[2023-03-02 03:07] VITALS: BP 140/64; PULSE 69; RESP 16; TEMP 36.2; O2SAT 97
[2023-03-02 06:03] LABS: MANUAL DIFF FLAG NO
[2023-03-02 06:08] LABS: Basophils Percent Auto 0.1 % (0-2); Hematocrit 36.5 % (37.0-47.0); Hemoglobin 12.1 g/dl (12.0-16.0); Imm Gran Abs Auto 0.05 X10*3/uL (0.00-0.03); Imm Gran Pct Auto 0.5 % (0.0-0.4); Lymphocytes Absolute Auto 1.2 X10*3/uL (1.2-4.9); Lymphocytes Percent Auto 12.3 % (20-40); Mean Corpuscular HGB Conc 33.2 g/dl (31.0-35.0); Mean Corpuscular Hemoglobin 30.3 pg (27.0-33.0); Mean Corpuscular Volume 91.5 fL (80.0-98.0); Mean Platelet Volume 11.6 fL (9.4-12.3); Monocytes Absolute Auto 0.4 X10*3/uL (0.1-1.2); Monocytes Percent Auto 4.4 % (2-11); Neutrophils Absolute Auto 8.1 x10*3/uL (2.0-8.3); Neutrophils Percent Auto 82.7 % (45-73); Platelet Count 220 X10*3/uL (160-400); Red Blood Count 3.99 X10*6/uL (4.20-5.50); Red Cell Distribution Width 12.3 % (11.0-16.0); White Blood Count 9.8 X10*3/uL (4.8-10.8)
[2023-03-02 06:18] LABS: Anion Gap 12 (12-20); Blood Urea Nitrogen 13 mg/dL (9-16); Calcium 9.3 mg/dL (8.4-10.2); Carbon Dioxide 24 mmol/L (22-29); Chloride 110 mmol/L (96-108); Creatinine Clr Calc Pharmacy 92.2; Estimated Glomerular Filt Rate > 60; Glucose Random 97 mg/dL (60-115); Potassium 4.3 mmol/L (3.3-5.1); Sodium 142 mmol/L (135-145)
[2023-03-02] MEDS: Famotidine/PF 20 MG/2 ML VIAL IVPUSH (07:03)
[2023-03-02 07:19] VITALS: BP 127/78; PULSE 66; RESP 16; TEMP 36; O2SAT 97
--- NOTE | 2023-03-02 09:53 | MHC.CM.PN ---
pt dcd home no skilled servceis ordered by
[2023-03-02 11:24] VITALS: BP 128/80; PULSE 68; RESP 16; TEMP 36.6; O2SAT 97
--- NOTE | 2023-03-02 14:35 | HO.POSTANES ---
Post Anesthesia Evaluation Post Anesthesia Evaluation Date of Service: 03/02/23 Vital Signs: Vital Signs Temp Pulse Resp BP Pulse Ox O2 Del Method 03/02/23 11:24 97.8 F 68 16 128/80 97 Room Air 03/02/23 07:19 96.8 F 66 16 127/78 97 Room Air 03/02/23 03:07 97.1 F 69 16 140/64 H 97 Room Air Anesthesia: General Endotracheal-GETA Mental Status: Awake Pain Control: Satisfactory Nausea/Vomiting: None Hydration: Adequate Anesthesia-Related Issues: No Anes. Related Issues
== END 2023-03-02 14:26 | disposition home or self-care (01) | DRG 403 ==
LOC: HO.SSSA 14:57 → HO.S3 15:03
PROVIDERS: Physician Assistant Surgical; Admitting Provider Surgery; PCP Family Medicine; Visit Provider Surgery
PROC: 0DB64Z3 Excision of Stomach, Percutaneous Endoscopic Approach, Vertical (ICD-10-PCS; CPT 43845; principal; 2023-03-01 11:30)
DX: E66.01 Morbid (severe) obesity due to excess calories (principal); K76.0 Fatty (change of) liver, not elsewhere classified; Q43.3 Congenital malformations of intestinal fixation; K21.9 Gastro-esophageal reflux disease without esophagitis; Z20.822 Contact with and (suspected) exposure to COVID-19; Z87.891 Personal history of nicotine dependence; Z79.899 Other long term (current) drug therapy; Z68.35 Body mass index [BMI] 35.0-35.9, adult
CPT/HCPCS: 36415; 80048; 85014; 85018; 85025; 86850; 86900; 86901; 87635; 88307; 88342; A4649; C1776; C9088; C9145; J0131; J0690; J1100; J1170; J2250; J2405; J2795; J3010

== ENCOUNTER → 2023-03-07 09:32 | Outpatient (BNVA) | payer MEDICAID, SELFPAY | PROVIDERS: PCP Family Medicine; Referring Provider Family Medicine; Visit Provider Physician Assistant | DX: Z98.84 Bariatric surgery status (principal) | CPT/HCPCS: 99212 ==

== ENCOUNTER → 2023-03-31 11:28 | Outpatient (BNVA) | payer MEDICAID, SELFPAY | PROVIDERS: PCP Family Medicine; Visit Provider Physician Assistant Surgical ==

== ENCOUNTER 2023-05-04 13:06 | Outpatient (AMB) | payer MEDICAID, SELFPAY ==
--- NOTE | 2023-05-04 13:07 | A.OFFVIS_ITS ---
Intake VS Expanded 05/04/23 13:14 Height 5 ft 2 in Weight 165 lb 9.6 oz BMI 30.3 BP 141/87 H Blood Pressure Location Rt brachial Blood Pressure Position Sitting Pulse 81 Pulse Source Pulse Oximeter Temp 96.5 F L Temperature Source Tympanic Pulse Oximetry 95 Oxygen Delivery Method Room Air Body Fat 56.0 Body Fat Percentage 33.8 Free Fat Mass 109.6 Muscle Mass 104.0 Visceral Mass 7.0 Water Mass 78.0 BMR 1,488 Intake Visit Reasons: (OV) PO LSG 03/01/23 Allergies bee venom protein (honey bee) Allergy (Severe, Verified 05/04/23 13:16) Anaphylaxis shellfish derived Allergy (Severe, Verified 05/04/23 13:16) Anaphylaxis HPI HPI Comments History of Present Illness Details This?a?47?yo female who is s/p LSG without hiatal hernia repair on?03/01/23. Presents for 2.5 month post op visit. Weight today is 165.6 pounds, with a BMI of 30.3.? There has been a 54.6 pound weight loss,(initial weight 220.2 pounds) since starting the program on 10/27/22 reflecting a 24.7% total body weight loss and a weight loss of 30.9 pounds since surgery (operative weight 196.5 pounds) reflecting a 15.7% TBWL since surgery.? No complaints of nausea, emesis, abdominal pain or reflux. Reports infrequent but normal bowel movements every 1-2 days and uses stool softeners regularly. 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 [facility] Medical History (Updated 03/03/23 @ 00:03 by Ophelia Ha) Morbid obesity Obesity Tendonitis Surgical History (Updated 05/04/23 @ 13:19 by Dari Reynoso [facility]) History of inguinal hernia repair, bilateral History of lumpectomy of both breasts History of surgery on left wrist History of tubal ligation Hx of laparoscopic partial gastrectomy Family History Mother COPD (chronic obstructive pulmonary disease) Father No problems noted. Son No problems noted. Daughter No problems noted. 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 Review of Systems Const All systems reviewed & are unremarkable except as noted in HPI and below Physical Exam Vital Signs: Last Vital Signs Temp 96.5 F L 05/04/23 13:14 Pulse 81 05/04/23 13:14 BP 141/87 H 05/04/23 13:14 Pulse Ox 95 05/04/23 13:14 Oxygen Delivery Method Room Air 05/04/23 13:14 BMI result Body Mass Index 30.3 Assessment & Plan Assessment & Plan (1) S/P laparoscopic sleeve gastrectomy: Code(s): Z98.84 - Bariatric surgery status Plan: Orgain shake 2 scoops 8-10, Orgain shake 1 scoop 11-1, ZP bar 5-8 meal 3 forks protein and 3 forks cooked veg increase exercise with cardio for 300 jaclyn per day Coding Level of Care Code Global (55785) Diagnoses S/P laparoscopic sleeve gastrectomy Z98.84
[2023-05-04 13:14] VITALS: BP 141/87; PULSE 81; TEMP 35.8; O2SAT 95; BMI 30.3
== END 2023-05-04 17:57 | disposition home or self-care (01) ==
PROVIDERS: PCP Family Medicine; Visit Provider Physician Assistant Surgical
DX: Z98.84 Bariatric surgery status (principal)
CPT/HCPCS: 99024

== ENCOUNTER → 2023-05-04 13:06 | Outpatient (BNVA) | payer MEDICAID, SELFPAY | PROVIDERS: PCP Family Medicine; Visit Provider Physician Assistant Surgical ==

== ENCOUNTER 2023-06-29 12:57 | Outpatient (AMB) | payer MEDICAID, SELFPAY ==
--- NOTE | 2023-06-29 13:00 | A.OFFVIS_ITS ---
Intake VS Expanded 06/29/23 13:14 BP 130/81 Blood Pressure Location Rt brachial Blood Pressure Position Sitting Pulse 70 Pulse Source Pulse Oximeter Temp 96.7 F L Temperature Source Temporal Artery Scan Pulse Oximetry 95 Oxygen Delivery Method Room Air Height 5 ft 2 in Weight 152 lb 9.6 oz BMI 27.9 Body Fat % 31.4 Body Fat Mass 47.8 Fat Free Mass 104.8 Visceral Fat Rating 6.0 Body Water % 49.0 Body Water Mass 41.6 Muscle Mass/Score 99.4 Basal Metabolic Rate/Score 1,416 Intake Visit Reasons: (OV) PO LSG 03/01/23 Director Outcomes Required: No Allergies bee venom protein (honey bee) Allergy (Severe, Verified 05/04/23 13:16) Anaphylaxis shellfish derived Allergy (Severe, Verified 05/04/23 13:16) Anaphylaxis Medication List - Last Reconciled 06/29/23 by PHILLY Sarmiento No Known Home Meds HPI HPI Comments History of Present Illness Details This?a?47?yo female who is s/p LSG without hiatal hernia repair on?03/01/23. Presents for 3.5 month post op visit. Weight today is 152.6 pounds, with a BMI of 27.9.? There has been a 67.6 pound weight loss,(initial weight 220.2 pounds) since starting the program on 10/27/22 reflecting a 30.6% total body weight loss and a weight loss of 43.9 pounds since surgery (operative weight 196.5 pounds) reflecting a 22.3% TBWL since surgery.? No complaints of nausea, emesis, abdominal pain or reflux. Reports infrequent but normal bowel movements every 1-2 days and uses stool softeners regularly. Scheduled for f/u with nephrology in July given hx of hematuria and stones. She has had no further hematuria and treated for E Coli UTI. She states she has had episodes of feeling gas. Complains of intermittent rash to the groin due to excess skin. 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 Son No problems noted. Daughter No problems noted. 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 Physical Exam Const General: healthy appearing and no acute distress Resp Effort & Inspection: normal respiratory effort Auscultation: clear to auscultation bilaterally Cardio Rate: regular rate Rhythm: regular rhythm GI Auscultation: normal bowel sounds Extrem General: Yes normal to inspection Assessment & Plan Assessment & Plan (1) S/P laparoscopic sleeve gastrectomy: Code(s): Z98.84 - Bariatric surgery status Plan: will continue Orgain 2 scoops 1 egg/ czech yogurt meal 5 forks/5 forks x 2 Encouraged to increase exercise Add clotrimazole for rash prn rtc RD 4 weeks, me 4 weeks Medications: New clotrimazole 1% (Antifungal (clotrimazole)) 1 appl topical BID 45 grams 2RF Coding Level of Care Code Est Pt Level 3 (49516) Diagnoses S/P laparoscopic sleeve gastrectomy Z98.84
[2023-06-29 13:14] VITALS: BP 130/81; PULSE 70; TEMP 35.9; O2SAT 95; BMI 27.9
== END 2023-06-29 14:11 | disposition home or self-care (01) ==
PROVIDERS: PCP Family Medicine; Visit Provider Physician Assistant Surgical
DX: E66.3 Overweight (principal); Z68.27 Body mass index [BMI] 27.0-27.9, adult; Z90.3 Acquired absence of stomach [part of]; Z98.84 Bariatric surgery status
CPT/HCPCS: 99213

== ENCOUNTER → 2023-06-29 12:57 | Outpatient (BNVA) | payer MEDICAID, SELFPAY | PROVIDERS: PCP Family Medicine; Visit Provider Physician Assistant Surgical | DX: Z98.84 Bariatric surgery status (principal) | CPT/HCPCS: 99212 ==

== ENCOUNTER 2024-09-10 09:28 | Outpatient (AMB) | payer OTHER, SELFPAY ==
--- NOTE | 2024-09-10 09:05 | A.OFFVIS_ITS ---
VS Expanded 09/10/24 09:06 Height 5 ft 2 in Weight 148 lb 4 oz BMI 27.1 Body Fat % 33 Fat Free Mass 99.4 Visceral Fat Rating 10 Body Water % 46 Muscle Mass/Score 93.4 Basal Metabolic Rate/Score 1,344 Intake Visit Reasons: (TV) PO LSG 03/01/23 Sod Stripper Required: No Allergies bee venom protein (honey bee) Allergy (Severe, Verified 05/04/23 13:16) Anaphylaxis shellfish derived Allergy (Severe, Verified 05/04/23 13:16) Anaphylaxis Medication List - Last Reconciled 09/10/24 by PHILLY Sarmiento clotrimazole 1% (Antifungal (clotrimazole)) 1 appl topical BID HPI Comments Details: This?a?48?yo female who is s/p LSG without hiatal hernia repair on?03/01/23. Presents for 18 month post op visit. Weight today is 148.4 pounds, with a BMI of 27.1.? There has been a 71.8 pound weight loss,(initial weight 220.2 pounds) since starting the program on 10/27/22 reflecting a 32.6% total body weight loss and a weight loss of 48.1 pounds since surgery (operative weight 196.5 pounds) reflecting a 24.4% TBWL since surgery.? No complaints of nausea, emesis, abdominal pain or reflux. Reports infrequent but normal bowel movements every 1- 2 days and uses stool softeners regularly. Was lowest at 135 and felt she looked sickly and she is happy with her current weight. She feels great. She had several issues with kidney stones and this is now improved and she has been told that she can resume her shakes. Not related to sodium. She would like to resume her shakes. Complains of intermittent rash to the groin due to excess skin of her legs. She would get the rash 1-2 times per month and resolves with Rx cream treatment but recurs. This causes distress, mentally, it is also itchy and painful. She also has excess skin of her arms and this causes difficulty with hygiene, she would cut herself while shaving. She also has ill fitting clothing due to the excess skin. 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 3 = symptoms bothersome and daily 4 = symptoms affect daily activities 5 = symptoms are incapacitating, unable to do daily activities ? How bad is the heartburn: 0 ? Heartburn while lying down: 0 ? Heartburn when standing up: 0 ? Heartburn after meals: 0 ? Does heartburn change your diet: 0 ? Does heartburn wake you up from sleep: 0 ? Do you have difficulty swallowin ? Do you have pain with swallowin ? If you take medicine for your reflux, does this affect your daily life:0 Satisfaction with present condition - satisfied or not satisfied: satisfied [facility] Medical History Obesity Morbid obesity Tendonitis Surgical History Hx of laparoscopic partial gastrectomy History of inguinal hernia repair, bilateral History of surgery on left wrist History of lumpectomy of both breasts History of tubal ligation Family History Mother COPD (chronic obstructive pulmonary disease) Father No problems noted. Son No problems noted. Daughter No problems noted. 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 Will assess for stones if persists. (2) Excess skin: Code(s): L98.7 - Excessive and redundant skin and subcutaneous tissue Category: Medical Plan: Given excessive weight loss, recurrence of rash despite Rx treatment, as well as increased hygiene and poor fitting clothing, will recommend medically necessary skin removal surgery of her arms and medial thighs. She has maintained her weight over the last 3 months. Will have her continue Rx as needed and come in to the office for pictures to submit to her insurance company for approval of bilateral brachioplasty and thighplasty. Orders: Orders Insulin Today K76.0 - Fatty (change of) liver, not elsewhere classified, Z98.84 - Bariatric surgery status Lipid Panel Today K76.0 - Fatty (change of) liver, not elsewhere classified, Z98.84 - Bariatric surgery status IRON PROFILE Today K76.0 - Fatty (change of) liver, not elsewhere classified, Z.84 - Bariatric surgery status Comprehensive Met. Panel Today K76.0 - Fatty (change of) liver, not elsewhere classified, Z98.84 - Bariatric surgery status Vitamin B1 Today K76.0 - Fatty (change of) liver, not elsewhere classified, Z98.84 - Bariatric surgery status TSH reflex Free T4 Today K76.0 - Fatty (change of) liver, not elsewhere clas sified, Z98.84 - Bariatric surgery status Vitamin D 25-OH Total Today K76.0 - Fatty (change of) liver, not elsewhere classified, Z98.84 - Bariatric surgery status Hemoglobin A1c Today K76.0 - Fatty (change of) liver, not elsewhere classified, Z98.84 - Bariatric surgery status Complete Blood Count Auto Diff Today K76.0 - Fatty (change of) liver, not elsewhere classified, Z98.84 - Bariatric surgery status Vitamin B12 and Folate Today K76.0 - Fatty (change of) liver, not elsewhere classified, Z98.84 - Bariatric surgery status Zinc Today K76.0 - Fatty (change of) liver, not elsewhere classified, Z98.84 - Bariatric surgery status C Reactive Protein Today K76.0 - Fatty (change of) liver, not elsewhere classified, Z98.84 - Bariatric surgery status Vitamin A Today K76.0 - Fatty (change of) liver, not elsewhere classified, Z98.84 - Bariatric surgery status Ferritin Today K76.0 - Fatty (change of) liver, not elsewhere classified, Z98.84 - Bariatric surgery status
[2024-09-10 09:06] VITALS: BMI 27.1
== END 2024-09-10 09:35 | disposition home or self-care (01) ==
LOC: HO.HBS 09:28
PROVIDERS: PCP Family Medicine; Visit Provider Physician Assistant Surgical
DX: L98.7 Excessive and redundant skin and subcutaneous tissue (principal); Z98.84 Bariatric surgery status
CPT/HCPCS: 99214; G2211

== ENCOUNTER 2024-09-11 11:22 | Outpatient (REF) | payer OTHER, SELFPAY ==
[2024-09-11 11:42] LABS: MANUAL DIFF FLAG NO
[2024-09-11 12:05] LABS: Basophils Percent Auto 0.6 % (0-2); Eosinophils Absolute Auto 0.2 X10*3/uL (0.0-0.4); Eosinophils Percent Auto 3.6 % (0-4); Hematocrit 40.7 % (37.0-47.0); Hemoglobin 13.5 g/dl (12.0-16.0); Imm Gran Abs Auto 0.01 X10*3/uL (0.00-0.03); Imm Gran Pct Auto 0.2 % (0.0-0.4); Lymphocytes Absolute Auto 1.9 X10*3/uL (1.2-4.9); Lymphocytes Percent Auto 40.2 % (20-40); Mean Corpuscular HGB Conc 33.2 g/dl (31.0-35.0); Mean Corpuscular Hemoglobin 30.9 pg (27.0-33.0); Mean Corpuscular Volume 93.1 fL (80.0-98.0); Mean Platelet Volume 10.9 fL (9.4-12.3); Monocytes Absolute Auto 0.2 X10*3/uL (0.1-1.2); Monocytes Percent Auto 4.6 % (2-11); Neutrophils Absolute Auto 2.4 x10*3/uL (2.0-8.3); Neutrophils Percent Auto 50.8 % (45-73); Platelet Count 208 X10*3/uL (160-400); Red Blood Count 4.37 X10*6/uL (4.20-5.50); Red Cell Distribution Width 12.2 % (11.0-16.0); White Blood Count 4.8 X10*3/uL (4.8-10.8)
[2024-09-11 12:15] LABS: Estimated Average Glucose 100 mg/dL; Hemoglobin A1c % 5.1 % (<6.0); Total Hemoglobin (HGBA1C) 3436.7039 umol/L
[2024-09-11 12:46] LABS: Alanine Aminotransferase 17 U/L (0-31); Albumin Level 4.4 g/dL (3.5-5.0); Alkaline Phosphatase 68 U/L (39-117); Anion Gap 9 (12-20); Aspartate Amino Transferase 19 U/L (5-31); Bilirubin Total 0.6 mg/dL (0.0-1.0); Blood Urea Nitrogen 11 mg/dL (9-16); C Reactive Protein < 0.10 mg/dL (< or = 0.50); Calcium 9.5 mg/dL (8.4-10.2); Carbon Dioxide 31 mmol/L (22-29); Chloride 105 mmol/L (96-108); Cholesterol 216 mg/dL (<200); Estimated Glomerular Filt Rate > 60; Glucose Random 94 mg/dL (60-115); HDL Cholesterol 98 mg/dL (>40); Iron 125 mcg/dL (30-160); LDL Cholesterol Calculated 106 mg/dL (<100); Percent Iron Saturation 44 % (15-50); Potassium 4.2 mmol/L (3.3-5.1); Sodium 141 mmol/L (135-145); Total Iron Binding Capacity 281 mcg/dL (228-428); Total Protein 7.1 g/dL (6.5-8.0); Triglycerides 60 mg/dL (<150); Unsaturated Iron Binding 156 ug/dL
[2024-09-11 12:53] LABS: Ferritin 48 ng/mL (10-250); TSH reflex Free T4 0.95 uIU/mL (0.32-4.0); Vitamin D 25-OH Total 42.6 ng/mL (>30)
[2024-09-11 13:32] LABS: Insulin 6 uU/mL (2-29)
[2024-09-11 13:46] LABS: Folate 5.3 ng/mL (> or = 4.0); Vitamin B12 261 pg/mL (200-900)
[2024-09-14 00:34] LABS: Zinc 83 mcg/dL (60-130)
[2024-09-15 19:08] LABS: Vitamin A 59 mcg/dL (38-98)
[2024-09-20 16:23] LABS: Vitamin B1 9 nmol/L (8-30)
== END 2024-09-11 11:23 | disposition home or self-care (01) ==
LOC: HO.LAB 11:22
PROVIDERS: PCP Family Medicine; Visit Provider Physician Assistant Surgical
DX: K76.0 Fatty (change of) liver, not elsewhere classified (principal); Z98.84 Bariatric surgery status
CPT/HCPCS: 36415; 80053; 80061; 82306; 82607; 82728; 82746; 83036; 83525; 83540; 84425; 84443; 84590; 84630; 85025; 86140

== ENCOUNTER 2024-12-06 10:28 | Outpatient (AMB) | payer OTHER, SELFPAY ==
--- NOTE | 2024-12-06 11:01 | A.OFFVIS_ITS ---
VS Expanded 12/06/24 11:10 BP 138/84 Blood Pressure Location Rt brachial Blood Pressure Position Sitting Pulse 72 Pulse Source Pulse Oximeter Temp 97.3 F Temperature Source Temporal Artery Scan Pulse Oximetry 100 Oxygen Delivery Method Room Air Height 5 ft 2 in Weight 147 lb 3.2 oz BMI 26.9 Body Fat % 33.3 Body Fat Mass 49.0 Fat Free Mass 98.2 Visceral Fat Rating 6.0 Body Water % 47.5 Body Water Mass 69.8 Muscle Mass/Score 93.0 Basal Metabolic Rate/Score 1,338 Intake Visit Reasons: (OV) PO LSG 03/01/23 Alarm Signaler Required: No Allergies bee venom protein (honey bee) Allergy (Severe, Verified 12/06/24 11:07) Anaphylaxis shellfish derived Allergy (Severe, Verified 12/06/24 11:07) Anaphylaxis Medication List - Last Reconciled 12/06/24 by PHILLY Sarmineto clotrimazole 1% 1 appl topical BID triamcinolone acetonide 0.1% 1 appl topical BID HPI Comments Details: This?a?49?yo female who is s/p LSG without hiatal hernia repair on?03/01/23. Presents for 1year 9 month post op visit. Weight today is 147.2 pounds, with a BMI of 26.9.? There has been a 73 pound weight loss,(initial weight 220.2 pounds) since starting the program on 10/27/22 reflecting a 33.1% total body weight loss and a weight loss of 49.3 pounds since surgery (operative weight 196.5 pounds) reflecting a 25% TBWL since surgery.? No complaints of nausea, emesis, abdominal pain or reflux. Reports infrequent but normal bowel movements every 1-2 days and uses stool softeners regularly. Was lowest at 135 and felt she looked sickly and she is happy with her current weight. She feels great. Complains of intermittent rash to the groin due to excess skin of her legs. She would get the rash 1-2 times per month and resolves with Rx cream treatment but recurs. This causes distress, mentally, it is also itchy and painful. She also has excess skin of her arms and this causes difficulty with hygiene, she would cut herself while shaving. She also has ill fitting clothing due to the excess skin. She has used antifungal cream however at her last visit due to persistent recurrence we added topical steroid cream. She states that she has been having difficulty at home, stress with her daughter. She has noted chest pain and palpitations. She reports an EKG showed evidence of prior SD and this is being worked up through her primary care physician and referral to Cardiology at [facility]. She has no complaints of pain at today's visit nor complaints of palpitations. States that she is able to tend to her horses and do vigorous activity without chest pain. 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 Son No problems noted. Daughter No problems noted. 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 Will continue meal and exercise plan (2) Excess skin: Code(s): L98.7 - Excessive and redundant skin and subcutaneous tissue Category: Medical Plan: Patient has had recurrent rash of her abdomen, below the pannus, despite appropriate treatment with both antifungal and antibiotic courses. Given her significant weight loss and recurrence of rash, interference with ADLs, it would be appropriate for medically necessary skin removal surgery. As she has most recently developed some cardiac issues which she is currently investigating, we will await the outcome and resolution of her cardiac workup prior to submission for an elective case. She will have office notes, tests, recommendations faxed to our office regarding her cardiac workup.
[2024-12-06 11:10] VITALS: BP 138/84; PULSE 72; TEMP 36.3; O2SAT 100; BMI 26.9
--- OUTSIDE RECORDS SUMMARY | 2024-12-06 13:07 | XMS_ITS | Referral Summary ---
Author Organization [facility] Address [address] [place] [address] Care Team Providers Care Polarity Tester Name Role Phone Mykel Go Primary Care Provider [phone] Allergies No known active allergies Medications escitalopram (LEXAPRO) 10 mg tablet SMARTSI Tablet(s) By Mouth Daily 4 Active FLUoxetine (PROzac) 20 mg capsule SMARTSI Capsule(s) By Mouth Daily 4 Active ibuprofen (MOTRIN) 600 mg tablet SMARTSI Tablet(s) By Mouth 3 Times Daily PRN Active LORazepam (ATIVAN) 1 mg tablet SMARTSI Tablet(s) By Mouth Every Night PRN 4 Active ondansetron (ZOFRAN ODT) 4 mg disintegrating tablet SMARTSI Tablet(s) By Mouth Every 8 Hours PRN 4 Active Active Problems Problem Noted Date Diagnosed Date Kidney stones 04/06/2023 Wrist Injury 06/25/2011 Social History Tobacco Use Types Packs/Day Years Used Date Smoking Tobacco: Never Smokeless Tobacco: Never Tobacco Cessation:Counseling Given: Not Answered Comments:: Alcohol Use Standard Drinks/Week Comments Never 0 (1 standard drink = 0.6 oz pur e alcohol) Comments Unknown Sex and Gender Information Value Date Recorded Sex Assigned at Female 08/15/2023 9:29 AM EST Legal Sex Female 4:37 PM EDT Gender Identity Female 08/15/2023 9:29 AM EST Sexual Orientation Straight 08/15/2023 9: 29 AM EST Last Filed Vital Signs Vital Sign Reading Time Taken Comments Blood Pressure 133/81 08/13/2024 3:33 PM EST Pulse 76 08/13/2024 3:33 PM EST Temperature 36.7 ??C (98.1 ??F) 06/13/2024 6:00 PM ED T Respiratory Rate 16 06/13/2024 6:00 PM EDT Oxygen Saturation 96% 08/13/2024 3:33 PM EST Inhaled Oxygen Concentration - - Weight 63.5 kg (140 lb) 06/13/2024 6:00 PM EDT Height 157.5 cm (5' 2 ) 06/13/2024 6:00 PM EDT Body Mass Index 25.61 06/13/2024 6:00 PM EDT Plan of Treatment Not on file Procedures * Due to [place] [employer] law, this organization might not be sharing negative HIV tests. Procedure Name Priority Date/Time Associated Diagnosis Comments [facility] SCREENING DIGITAL MAMMO Routine 05/12/2022 4:17 PM EDT from Last 3 Months or Most Recently Relevant to Health Maintenance Results * Due to [place] [employer] law, this organization might not be sharing negative HIV tests. * [facility] Screening Digital Mammogram (05/12/2022 4:17 PM EDT) Anatomical Region Laterality Modality Breast Mammography 05/12/2022 3:52 PM EDT Narrative 05/17/2022 12:46 PM EDT ? DEPARTMENT OF RADIOLOGY Patient: KARIME PARMAR ?Unit #: [id number] Ordering MD: MYKEL GO MD ?: 1975 Procedure: Digital Mammo Screen ? Age: 46 Location: MAMMO ? Exam Date: 05/12/22 Status: REG CLI ? Room/Bed: Primary MD: MYKEL GO MD ? Patient ?Order: DIGSCRMAM Additional Copy: ??MYKEL GO MD - #[id number] - DIGSCRMAM BILATERAL DIGITAL TOMOSYNTHESIS SCREENING MAMMOGRAM WITH CAD: 05/12/2022 CLINICAL: Routine. Digital 2D mammogram, synthesized 2D views and 3D Tomosynthesis views were obtained. Current study was also evaluated with a Computer Aided Detection (CAD) system. Comparison is made to prior exams. There are scattered areas of fibroglandular density. There are benign post operative findings in both breasts. No significant masses, calcifications, or other findings are seen ??in either breast. IMPRESSION: BENIGN There is no mammographic evidence of malignancy. A 1 year screening mammogram is recommended. ?? This exam was interpreted at [place], [place]. ?? POI: [place], [place]. Electronically signed by: Zuly Tran M.D., mt/penrad:05/15/2022 11:46:36 letter sent: A-2 Normal Benign Mammogram BI-RADS: 2 Benign ?? [facility] Procedure Note Zuly Tran, DO - 06/22/2023 DEPARTMENTOF RADIOLOGY Lewis t: KARIME PARMAR Unit #:[id number] Ordering MD: MYKEL GO MD :1975 Procedure: Digital Mammo Screen Age:46 Location: MAMMO ExamDate: 05/12/22 Status: [facility]/Bed: Primary MD: MYKEL GO MD PatientAcct #: [id number] Order:[facility] Additional Copy: MYKEL GO MD - #[id number] - DIGSCRMAM BILATERAL DIGITAL TOMOSYNTHESIS SCREENING MAMMOGRAM WITH CAD: 05/12/2022 CLINICAL: Routine. Digital 2D mammogram, synthesized 2D views and 3D Tomosynthesis views were obtained. Current study was also evaluated with a Computer Aided Detection (CAD) system. Comparison is made to prior exams. There are scattered areas of fibroglandular density. There are benign post operative findings in both breasts. No significant masses, calcifications, or other findings are seen in either breast. IMPRESSION: BENIGN There is no mammographic evidence of malignancy. A 1 year screening mammogram is recommended. This exam was interpreted at [place]. POI: [place]. Electronically signed by: Zuly Tran M.D. mt/bony:05/15/2022 11:46:36 letter sent: A-2 Normal Benign Mammogram BI-RADS: 2 Benign JOHN Mykel Go IMG BI PROCEDURES Final Result from Last 3 Months or Most Recently Relevant to Health Maintenance Insurance [facility] Care Teams Polarity Tester Relationship Specialty Start Date End Date Mykel Go [address] [place] [address] PCP - General Family Medicine 03/30/23
--- OUTSIDE RECORDS SUMMARY | 2024-12-06 13:07 | XMS_ITS | Clinical Summary ---
Author Organization [facility] Address [address] [place] [address] Care Team Providers Care Credit Analyst Name Role Phone Mykel Go Primary Care Provider [phone] Allergies No known active allergies Medications escitalopram [...] Date Kidney stones 04/06/2023 Wrist Injury 06/25/2011 Family History Medical History Relation Name Comments No Known Problems Father COPD Mother Relation Name Status Comments Father Mother Social History Tobacco Use Types Packs/Day Years [...] 06/13/2024 6:00 PM EDT Plan of Treatment Health Maintenance Due Date Last Done Comments Cervical Cancer Screening 1975 Cologuard 1975 Colon Cancer Screening 1975 Colonoscopy 1975 FOBT / Fit Test 1975 HIV Screening 1975 HPV and Pap Smear 1975 Hepatitis C Screening 1975 Pap Smear 1975 Sigmoidoscopy 1975 Hepatitis B Vaccines (1 of 3 - 19+ 3-dose series) 1996 DTaP,Tdap,and Td Vaccines (1 - Tdap) 1999 Mammogram 05/12/2024 05/12/2022, 07/04/2021, 03/14/2018, Additional history exists COVID-19 Vaccine ( - season) 2024 Influenza Vaccine (#1) 2024 08/24/2021, 2019 Alcohol/Substance Use Screening 09/26/2024 Depression Evaluation 09/26/2024 Social Drivers of Health Annual Screening 09/26/2024 RSV Vaccine (60+ years old and patients) (1 - 1-dose 75+ series) 2052 Pneumococcal Vaccine: Pediatric (0-5 Years) and At-Risk Patients (6-50 Years) Aged Out No longer eligible based on patient's age to complete this topic Procedures * Due to [place] state law, this organization might not be sharing negative HIV tests. Procedure Name Priority Date/Time Associated Diagnosis Comments [facility] SCREENING DIGITAL MAMMO Routine 05/12/2022 4:17 PM EDT from Last 3 Months or Most Recently Relevant to Health Maintenance Results * Due to [place] state law, this organization might not be sharing negative HIV tests. * [facility] Screening Digital Mammogram (05/12/2022 4:17 PM EDT) Anatomical Region Laterality Modality Breast Mammography 05/12/2022 3:52 PM EDT Narrative 05/17/2022 12:46 PM EDT ? DEPARTMENT OF RADIOLOGY Patient: KARIME PARMAR ?Unit #: [id number] Ordering MD: MYKEL GO MD ?: 1975 Procedure: Digital Mammo Screen ? Age: 46 Location: MAMMO ? Exam Date: 05/12/22 Status: REG CLI ? Room/Bed: Primary MD: MYKEL GO MD ? Patient ?Order: DIGSCRMAM Additional Copy: ??MYKEL GO MD - #[id number] - DIGSCRMAM BILATERAL DIGITAL TOMOSYNTHESIS SCREENING MAMMOGRAM [...] recommended. ?? [facility] [place] ?? POI: [place]. Electronically signed by: Zuly Tran M.D., mt/bony:05/15/2022 11:46:36 letter sent: A-2 Normal Benign Mammogram BI-RADS: 2 Benign ?? JOHN Procedure Note Zuly Tran, DO - 06/22/2023 DEPARTMENTOF RADIOLOGY Lewis t: KARIME PARMAR Unit #:[id number] Ordering MD: MYKEL GO MD :1975 Procedure: Digital Mammo Screen Age:46 Location: MAMMO ExamDate: 05/12/22 Status: REG CLIRo/Bed: Primary MD: MYKEL GO MD PatientAcct #: [id number] Order:DIGSCRM Additional Copy: MYKEL GO MD - #[id number] - DIGSCRMAM BILATERAL DIGITAL TOMOSYNTHESIS SCREENING MAMMOGRAM [...] is recommended. This exam was interpreted at [place], [place]. POI: [place]. Electronically signed by: Zuly Tran M.D., mt/bony:05/15/2022 11:46:36 letter sent: A-2 Normal Benign Mammogram BI-RADS: 2 Benign JOHN Mykel Go IMG BI PROCEDURES Final Result from Last 3 Months or Most Recently Relevant to Health Maintenance Insurance [facility] Care Teams Credit Analyst Relationship Specialty Start Date End Date Mykel Go [address] [place] [id number] PCP - General Family Medicine 03/30/23
== END 2024-12-06 14:06 | disposition home or self-care (01) ==
LOC: HO.HBS 10:28
PROVIDERS: PCP Family Medicine; Visit Provider Physician Assistant Surgical
DX: L98.7 Excessive and redundant skin and subcutaneous tissue (principal); Z90.3 Acquired absence of stomach [part of]; Z98.84 Bariatric surgery status
CPT/HCPCS: 99213

== ENCOUNTER → 2024-12-06 10:28 | Outpatient (BNVA) | payer OTHER, SELFPAY | PROVIDERS: PCP Family Medicine; Visit Provider Physician Assistant Surgical | DX: L98.7 Excessive and redundant skin and subcutaneous tissue (principal); E65 Localized adiposity; R21 Rash and other nonspecific skin eruption; Z98.84 Bariatric surgery status | CPT/HCPCS: 99212 ==